=== PATIENT | female | born 1985 | race Caucasian/White ===

== ENCOUNTER 2019-04-05 16:25 | Emergency (ER) | payer MEDICAID ==
[~2019-04-05] VITALS: Ht 160 cm; Wt 53.5 kg
[2019-04-05 17:13] VITALS: BP_SYST 125
[2019-04-05] MEDS ORDERED: LIDOCAINE 2%, 20 ML MDV INJ ONE (17:15)
[2019-04-05] MEDS ORDERED: SODIUM BICARBONATE 8.4% VIAL 50 MEQ/50 ML VIAL INJ ONE (17:15)
[2019-04-05] MEDS ORDERED: IBUPROFEN 800 MG TABLET PO ONE (17:15)
--- NOTE | 2019-04-05 17:21 | NUR ---
Patient triaged and placed in waiting room. VSS and patient appears in no acute distress at this time. Accompanied by self, awaiting available bed, and MD notified of need for MSE.
--- NOTE | 2019-04-05 21:08 | NUR ---
Note sachin in EDM - 04/05/19 at 2112 by [email or web address] pPatient to [facility] 5 to be[facility]ice for evaluation. Side rails up. Report given to PALMIRA Roca.
--- NOTE | 2019-04-05 21:08 | NUR ---
Patient to ER bed 5 to gown for evaluation. Side rails up. Report given to PALMIRA Goodman.
--- NOTE | 2019-04-05 21:13 | NUR ---
33 y./o female presents to ED w/ c/o of pain abd swelling to right middle finger. Pt states pain is constant and severe. Redness noted. Pt states pain is increased with palpatation. No fever, no chills, no N/V, noted. Pt has been wearing a glove to protect the finger. Will continue to monitor.
--- NOTE | 2019-04-05 21:15 | NUR ---
Dr. Steinberg in at bedside examining Pt.
[2019-04-05] MEDS ORDERED: SODIUM BICARBONATE 8.4% VIAL 50 MEQ/50 ML VIAL ONE (21:19)
[2019-04-05] MEDS ORDERED: LIDOCAINE 2%, 20 ML MDV ONE (21:20)
[2019-04-05] MEDS ORDERED: IBUPROFEN 800 MG TABLET ONE (21:20)
[2019-04-05 21:50] VITALS: BP_SYST 126
--- NOTE | 2019-04-05 21:50 | NUR ---
Patient given written and verbal discharge instructions and verbalizes understanding. ER MD discussed with patient the results and treatment provided. Patient in stable condition. ID arm band removed. Patient educated on pain management and to follow up with PMD. Pain Scale 0/10. Opportunity for questions provided and answered. Medication side effect fact sheet provided.
== END 2019-04-05 21:50 | disposition home or self-care (01) ==
LOC: SED 16:25
DX: L03.011 Cellulitis of right finger (principal); R03.0 Elevated blood-pressure reading, without diagnosis of hypertension; F12.90 Cannabis use, unspecified, uncomplicated
CPT/HCPCS: 10060; 99283; J2001

== ENCOUNTER 2020-09-17 20:35 | Emergency (ER) | payer MEDICAID ==
[~2020-09-17] VITALS: Ht 160 cm; Wt 57.2 kg
[2020-09-17 21:25] VITALS: BP_SYST 118
--- NOTE | 2020-09-17 21:50 | NUR ---
Patient called x 3, no answer
--- NOTE | 2020-09-17 21:50 | NUR ---
Patient left without being seen. No further care provided. ER MD aware
== END 2020-09-17 21:50 | disposition left against medical advice (07) ==
LOC: SED 20:35
DX: R10.9 Unspecified abdominal pain (principal); Z53.21 Procedure and treatment not carried out due to patient leaving prior to being seen by health care provider

== ENCOUNTER 2020-11-14 17:49 | Emergency (ER) | payer MEDICAID ==
[~2020-11-14] VITALS: Ht 162.6 cm; Wt 57.6 kg
--- NOTE | 2020-11-14 17:50 | NUR ---
Pt triaged and placed back in police car, pt here for OK to book, no complaints at this time. Small laceration to right elbow, approx 3 days ago, no bleeding noted.
--- NOTE | 2020-11-14 17:55 | NUR ---
ER Dr. Elliott at bedside examining patient.
[2020-11-14] MEDS ORDERED: BACITRACIN 1 GM OINT TP ONE ×2 (18:00→18:01)
[2020-11-14 18:07] VITALS: BP_SYST 131
[2020-11-14 18:48] VITALS: BP_SYST 131
--- NOTE | 2020-11-14 18:49 | NUR ---
Patient given written and verbal discharge instructions and verbalizes understanding. ER MD discussed with patient the results and treatment provided. Patient in stable condition. ID arm band removed. No prescriptions given. Patient educated on pain management and to follow up with PMD. Pain Scale 0. Opportunity for questions provided and answered. Medication side effect fact sheet provided.
== END 2020-11-14 18:49 ==
LOC: SED 17:49
DX: Z02.89 Encounter for other administrative examinations (principal)
CPT/HCPCS: 99283

== ENCOUNTER 2022-02-25 11:49 | Inpatient (IN) | payer MEDICAID ==
[~2022-02-25] VITALS: Ht 157.5 cm; Wt 56.7 kg
[2022-02-25 11:50] VITALS: BP_SYST 136
[2022-02-25 13:35] LABS: BASOPHILS # (AUTO) 0.1 K/uL (0.0-0.2); BASOPHILS % (AUTO) 0.8 % (0.0-2.0); EOSINOPHILS # (AUTO) 0.1 K/uL (0.0-0.4); EOSINOPHILS % (AUTO) 0.7 % (0.0-4.0); HEMATOCRIT 39.6 % (36-48); HEMOGLOBIN 13.2 g/dL (12.0-16.0); LYMPHOCYTES # (AUTO) 0.3 K/uL (1.0-5.5); LYMPHOCYTES % (AUTO) 3.4 % (20.5-51.5); MEAN CORPUSCULAR HEMOGLOBIN 31 pg (27-31); MEAN CORPUSCULAR HGB CONC 34 % (32-36); MEAN CORPUSCULAR VOLUME 94 fL (79.0-98.0); MONOCYTES # (AUTO) 0.5 K/uL (0.0-1.0); MONOCYTES % (AUTO) 4.7 % (1.7-9.3); NEUTROPHILS # (AUTO) 8.6 K/uL (1.8-7.7); NEUTROPHILS % (AUTO) 90.4 % (40.0-70.0); PLATELET COUNT (AUTO) 250 K/uL (130-430); RED BLOOD CELL COUNT(AUTO) 4.23 MIL/uL (4.2-6.2); RED CELL DISTRIBUTION WIDTH 12.9 % (9.0-15.0); WHITE BLOOD COUNT (AUTO) 9.6 K/uL (4.8-10.8)
[2022-02-25 14:02] LABS: CALCIUM 8.8 mg/dL (8.4-11.0); CREATININE 0.79 mg/dL (0.55-1.30)
[2022-02-25 14:06] LABS: ALBUMIN 3.9 g/dL (3.4-4.8)
[2022-02-25] MEDS ORDERED: MORPHINE 4 MG INJ. 4 MG/ML VIAL IVP ONE (16:15)
[2022-02-25] MEDS ORDERED: NACL 0.9% 1,000 ML IV ONE (16:15)
[2022-02-25] MEDS ORDERED: ONDANSETRON HCL 4 MG/2 ML VIAL IVP ONE (16:15)
[2022-02-25] MEDS ORDERED: KETOROLAC TROMETHAMINE 30 MG VIAL IVP ONE (16:30)
[2022-02-25] MEDS ORDERED: D5/0.45 NS 1,000 ML IV ONE (17:15)
[2022-02-25] MEDS ORDERED: SEVOFLURANE 15 MIN GAS INH ONE (17:50)
[2022-02-25] MEDS ORDERED: CEFAZOLIN 2 GM IVPB PREMIX 50 ML IV ONE (17:50)
[2022-02-25] MEDS ORDERED: SUCCINYLCHOLINE CHLORIDE 20 MG/ML(QUELICIN) ONE (17:50)
[2022-02-25] MEDS ORDERED: NS IRRIG SOLN 1000 ML IR ONE (17:50)
[2022-02-25] MEDS ORDERED: LR 1,000 ML IV.SOLN IV ONE (17:50)
[2022-02-25] MEDS ORDERED: PROPOFOL 200MG/ 20ML VIAL (DIPRIVAN) IV ONE (17:50)
[2022-02-25] MEDS ORDERED: fentaNYL CITRATE/PF 100 MCG/2 ML AMP ONE (17:50)
[2022-02-25] MEDS ORDERED: MIDAZOLAM HCL 5 MG/ML VIAL (VERSED) IV ONE (17:50)
[2022-02-25] MEDS ORDERED: NS 1000 ML IV.SOLN IV ONE (17:50)
[2022-02-25] MEDS ORDERED: ROCURONIUM BROMIDE 10 MG/ML (ZEMURON) ONE (17:50)
[2022-02-25 23:25] VITALS: BP_SYST 126
[2022-02-25] MEDS: KETOROLAC TROMETHAMINE 30 MG VIAL IM SCH (23:38)
[2022-02-26] VITALS: BP_SYST 122
[2022-02-26] MEDS: KETOROLAC TROMETHAMINE 30 MG VIAL IM SCH ×3 (05:18→18:00)
[2022-02-26 07:01] LABS: BASOPHILS % (AUTO) 0.9 % (0.0-2.0); EOSINOPHILS # (AUTO) 0.2 K/uL (0.0-0.4); EOSINOPHILS % (AUTO) 5.2 % (0.0-4.0); HEMATOCRIT 36.2 % (36-48); HEMOGLOBIN 12.3 g/dL (12.0-16.0); LYMPHOCYTES # (AUTO) 0.5 K/uL (1.0-5.5); MEAN CORPUSCULAR HEMOGLOBIN 32 pg (27-31); MEAN CORPUSCULAR HGB CONC 34 % (32-36); MEAN CORPUSCULAR VOLUME 94 fL (79.0-98.0); MONOCYTES # (AUTO) 0.3 K/uL (0.0-1.0); MONOCYTES % (AUTO) 8.3 % (1.7-9.3); NEUTROPHILS # (AUTO) 2.7 K/uL (1.8-7.7); NEUTROPHILS % (AUTO) 72.6 % (40.0-70.0); PLATELET COUNT (AUTO) 200 K/uL (130-430); RED BLOOD CELL COUNT(AUTO) 3.86 MIL/uL (4.2-6.2); RED CELL DISTRIBUTION WIDTH 12.7 % (9.0-15.0); WHITE BLOOD COUNT (AUTO) 3.7 K/uL (4.8-10.8)
[2022-02-26 07:45] LABS: INR 0.9 (0.8-1.2); PROTHROMBIN TIME 9.3 SECS (9.5-12.5)
[2022-02-26 07:55] LABS: CALCIUM 8.1 mg/dL (8.4-11.0); CREATININE 0.53 mg/dL (0.55-1.30); THYROID STIMULATING HORMONE 0.35 uIu/mL (0.36-3.74); TOTAL BILIRUBIN 0.5 mg/dL (0.0-1.0)
[2022-02-26 09:45] VITALS: BP_SYST 103
[2022-02-26] MEDS ORDERED: ONDANSETRON HCL 4 MG/2 ML VIAL IVP PRN (16:00)
[2022-02-26] MEDS ORDERED: METOCLOPRAMIDE HCL 10 MG/2 ML VIAL IVP PRN (16:00)
[2022-02-26] MEDS ORDERED: fentaNYL CITRATE/PF 100 MCG/2 ML AMP IVP PRN ×2 (16:00)
[2022-02-26 16:49] VITALS: BP_SYST 103
[2022-02-26] MEDS ORDERED: ONDANSETRON HCL 4 MG/2 ML VIAL ONE (18:25)
[2022-02-26] MEDS: MORPHINE 4 MG INJ. 4 MG/ML VIAL IVP PRN (18:48)
[2022-02-26 18:55] VITALS: BP_SYST 128
[2022-02-26 20:00] VITALS: BP_SYST 132
[2022-02-27] MEDS: KETOROLAC TROMETHAMINE 30 MG VIAL IM SCH ×5 (00:12→17:36)
[2022-02-27 04:00] VITALS: BP_SYST 130
[2022-02-27 07:23] LABS: BASOPHILS % (AUTO) 0.7 % (0.0-2.0); EOSINOPHILS # (AUTO) 0.1 K/uL (0.0-0.4); EOSINOPHILS % (AUTO) 2.8 % (0.0-4.0); HEMATOCRIT 37.2 % (36-48); HEMOGLOBIN 12.4 g/dL (12.0-16.0); LYMPHOCYTES # (AUTO) 0.8 K/uL (1.0-5.5); MEAN CORPUSCULAR HEMOGLOBIN 31 pg (27-31); MEAN CORPUSCULAR HGB CONC 33 % (32-36); MEAN CORPUSCULAR VOLUME 94 fL (79.0-98.0); MONOCYTES # (AUTO) 0.4 K/uL (0.0-1.0); MONOCYTES % (AUTO) 11.3 % (1.7-9.3); NEUTROPHILS # (AUTO) 2.4 K/uL (1.8-7.7); NEUTROPHILS % (AUTO) 63.2 % (40.0-70.0); PLATELET COUNT (AUTO) 200 K/uL (130-430); RED BLOOD CELL COUNT(AUTO) 3.97 MIL/uL (4.2-6.2); WHITE BLOOD COUNT (AUTO) 3.8 K/uL (4.8-10.8)
[2022-02-27 08:00] LABS: ALBUMIN 2.8 g/dL (3.4-4.8); CALCIUM 8.2 mg/dL (8.4-11.0); CREATININE 0.48 mg/dL (0.55-1.30); TOTAL BILIRUBIN 0.3 mg/dL (0.0-1.0)
[2022-02-27 08:41] VITALS: BP_SYST 104
[2022-02-27 11:46] VITALS: BP_SYST 101
[2022-02-27 16:27] VITALS: BP_SYST 112
[2022-02-27 20:00] VITALS: BP_SYST 119
[2022-02-27] MEDS: MORPHINE 4 MG INJ. 4 MG/ML VIAL IVP PRN (22:54)
[2022-02-28 01:41] VITALS: BP_SYST 120
[2022-02-28] MEDS: KETOROLAC TROMETHAMINE 30 MG VIAL IVP SCH ×3 (05:43→20:40)
[2022-02-28 08:00] VITALS: BP_SYST 94
[2022-02-28 10:20] LABS: BASOPHILS % (AUTO) 0.7 % (0.0-2.0); EOSINOPHILS # (AUTO) 0.2 K/uL (0.0-0.4); EOSINOPHILS % (AUTO) 5.6 % (0.0-4.0); HEMATOCRIT 38.2 % (36-48); HEMOGLOBIN 12.6 g/dL (12.0-16.0); LYMPHOCYTES # (AUTO) 0.9 K/uL (1.0-5.5); LYMPHOCYTES % (AUTO) 22.4 % (20.5-51.5); MEAN CORPUSCULAR HEMOGLOBIN 31 pg (27-31); MEAN CORPUSCULAR HGB CONC 33 % (32-36); MEAN CORPUSCULAR VOLUME 94 fL (79.0-98.0); MONOCYTES # (AUTO) 0.5 K/uL (0.0-1.0); MONOCYTES % (AUTO) 13.3 % (1.7-9.3); NEUTROPHILS # (AUTO) 2.3 K/uL (1.8-7.7); PLATELET COUNT (AUTO) 207 K/uL (130-430); RED BLOOD CELL COUNT(AUTO) 4.06 MIL/uL (4.2-6.2)
[2022-02-28 10:33] LABS: ALBUMIN 2.8 g/dL (3.4-4.8); CALCIUM 8.7 mg/dL (8.4-11.0); CREATININE 0.5 mg/dL (0.55-1.30); TOTAL BILIRUBIN 0.3 mg/dL (0.0-1.0)
[2022-02-28 16:00] VITALS: BP_SYST 115
[2022-02-28 20:35] VITALS: BP_SYST 109
[2022-03-01 00:50] VITALS: BP_SYST 108
[2022-03-01] MEDS: KETOROLAC TROMETHAMINE 30 MG VIAL IVP SCH ×3 (00:54→11:26)
[2022-03-01 07:39] LABS: INR 0.8 (0.8-1.2); PROTHROMBIN TIME 8.9 SECS (9.5-12.5)
[2022-03-01 08:00] VITALS: BP_SYST 118
[2022-03-01] MEDS ORDERED: INDOMETHACIN 50 MG SUPP.RECT RC ONE (08:00)
[2022-03-01] MEDS ORDERED: ONDANSETRON HCL 4 MG/2 ML VIAL IVP ONE (08:15)
[2022-03-01] MEDS ORDERED: SEVOFLURANE 15 MIN GAS INH ONE (08:15)
[2022-03-01] MEDS ORDERED: METOCLOPRAMIDE HCL 10 MG/2 ML VIAL IVP ONE (08:15)
[2022-03-01] MEDS ORDERED: SUGAMMADEX SODIUM 200 MG/2 ML VIAL IV ONE (08:15)
[2022-03-01] MEDS ORDERED: SUCCINYLCHOLINE CHLORIDE 20 MG/ML(QUELICIN) IVP ONE ×2 (08:15)
[2022-03-01] MEDS ORDERED: LR 1,000 ML IV.SOLN IV ONE (08:15)
[2022-03-01] MEDS ORDERED: PROPOFOL 200MG/ 20ML VIAL (DIPRIVAN) IV ONE (08:15)
[2022-03-01] MEDS ORDERED: IOHEXOL 300 mgI/mL, 50 mL INFUS..BTL IV ONE (08:15)
[2022-03-01] MEDS ORDERED: ROCURONIUM BROMIDE 10 MG/ML (ZEMURON) IV ONE (08:15)
[2022-03-01] MEDS ORDERED: ePHEDrine sulfate 50 MG/ML VIAL IVP ONE (08:15)
[2022-03-01] MEDS ORDERED: SIMETHICONE 40 MG/0.6 ML ML ONE (08:32)
[2022-03-01] MEDS: MEPERIDINE 100 MG INJ. 100 MG/ML VIAL ONE (10:20)
[2022-03-01 10:38] VITALS: BP_SYST 135
== END 2022-03-01 16:15 | disposition left against medical advice (07) | DRG 263 ==
LOC: SED 11:49 → SMU 17:05
PROVIDERS: ADMIT Internal Medicine; ATTEND Internal Medicine
PROC: BF131ZZ Fluoroscopy of Gallbladder and Bile Ducts using Low Osmolar Contrast (ICD-10-PCS; 2022-02-26)
PROC: 0FC94ZZ Extirpation of Matter from Common Bile Duct, Percutaneous Endoscopic Approach (ICD-10-PCS; 2022-02-26)
PROC: 0FT44ZZ Resection of Gallbladder, Percutaneous Endoscopic Approach (ICD-10-PCS; principal; 2022-02-26 15:20)
PROC: 0F798ZZ Dilation of Common Bile Duct, Via Natural or Artificial Opening Endoscopic (ICD-10-PCS; 2022-03-01 08:00)
DX: K80.65 Calculus of gallbladder and bile duct with chronic cholecystitis with obstruction (principal); U07.1 COVID-19; K86.2 Cyst of pancreas; F10.10 Alcohol abuse, uncomplicated; F15.10 Other stimulant abuse, uncomplicated; K21.9 Gastro-esophageal reflux disease without esophagitis; Y90.9 Presence of alcohol in blood, level not specified; K86.9 Disease of pancreas, unspecified; K29.70 Gastritis, unspecified, without bleeding; Z59.00 Homelessness unspecified
CPT/HCPCS: 36415; 43235; 43262; 43264; 74330-TC; 76000; 76376; 76705; 80053; 80061; 80307; 82150; 83605; 83690; 84443; 84703; 85025; 85610-TC; 85730-TC; 86140; 87081; 88304; 96360; 99285; C1727; C1758; C1769; G0482; J0330; J0690; J1885; J2175; J2250; J2270; J2405; J2704; J2765; J3010; J3490; J7030; J7120; Q9967

== ENCOUNTER 2022-08-02 07:52 | Emergency (ER) | payer MEDICAID ==
[~2022-08-02] VITALS: Ht 157.5 cm; Wt 56.7 kg
[2022-08-02 08:00] VITALS: BP_SYST 137
[2022-08-02] MEDS ORDERED: DOXYCYCLINE HYCLATE 100 MG CAPSULE PO ONE (08:30)
[2022-08-02] MEDS ORDERED: cefTRIAXone 250 MG VIAL IM ONE (08:30)
[2022-08-02] MEDS ORDERED: ONDANSETRON 4 MG ODT TAB PO ONE (08:30)
[2022-08-02] MEDS ORDERED: MAG HYDROX/AL HYDROX/SIMETH 30 ML, DICYCLOMINE HCL 20 MG, LIDOCAINE VISCOUS 2% 15ML (PO... PO ONE ×3 (08:30)
[2022-08-02] MEDS ORDERED: FAMOTIDINE 20 MG TABLET PO ONE (08:30)
[2022-08-02 08:31] LABS: BASOPHILS % (AUTO) 0.7 % (0.0-2.0); EOSINOPHILS # (AUTO) 0.3 K/uL (0.0-0.4); EOSINOPHILS % (AUTO) 5.9 % (0.0-4.0); HEMATOCRIT 40.8 % (36-48); HEMOGLOBIN 13.4 g/dL (12.0-16.0); LYMPHOCYTES # (AUTO) 2.1 K/uL (1.0-5.5); LYMPHOCYTES % (AUTO) 35.7 % (20.5-51.5); MEAN CORPUSCULAR HEMOGLOBIN 30 pg (27-31); MEAN CORPUSCULAR HGB CONC 33 % (32-36); MEAN CORPUSCULAR VOLUME 91 fL (79.0-98.0); MONOCYTES # (AUTO) 0.7 K/uL (0.0-1.0); MONOCYTES % (AUTO) 12.5 % (1.7-9.3); NEUTROPHILS # (AUTO) 2.6 K/uL (1.8-7.7); NEUTROPHILS % (AUTO) 45.2 % (40.0-70.0); PLATELET COUNT (AUTO) 278 K/uL (130-430); RED BLOOD CELL COUNT(AUTO) 4.47 MIL/uL (4.2-6.2); WHITE BLOOD COUNT (AUTO) 5.8 K/uL (4.8-10.8)
[2022-08-02 08:55] LABS: ALANINE AMINOTRANSFERASE 36 U/L (12-78); ALBUMIN 3.8 g/dL (3.4-4.8); ANION GAP 10 (5-15); ASPARTATE AMINOTRANSFERASE 34 U/L (10-37); CALCIUM 8.5 mg/dL (8.4-11.0); CHLORIDE 101 mmol/L (98-107); CREATININE 0.94 mg/dL (0.55-1.30); GFR AFRICAN AMERICAN 85 mL/min (>90); GLUCOSE 123 mg/dL (70-99); LIPASE 77 U/L (73-393); TOTAL BILIRUBIN 0.5 mg/dL (0.0-1.0); UREA NITROGEN, BLOOD 20 mg/dL (8-21)
[2022-08-02 09:05] LABS: BILIRUBIN,URINE NEGATIVE (NEGATIVE); BLOOD, URINE NEGATIVE (NEGATIVE); CLARITY/URINE SL CLOUDY (CLEAR); COLOR,URINE YELLOW (YELLOW); GLUCOSE,URINE NEGATIVE (NEGATIVE); KETONES,URINE TRACE (NEGATIVE); LEUKOCYTE ESTERASE ,URINE 1+ (NEGATIVE); NITRITE, URINE NEGATIVE (NEGATIVE); PROTEIN URINE 2+ (NEGATIVE)
[2022-08-02 09:17] LABS: ACETAMINOPHEN < 1 ug/mL (1-30); ALCOHOL, BLOOD < 3 mg/dL (<10)
[2022-08-02 09:19] LABS: BACTERIA,URINE FEW /HPF (None Seen); MUCUS,URINE 1+ /LPF (None Seen); RBC,URINE 0-3 /HPF (0-3); WBC,URINE 20-50 /HPF (0-3)
[2022-08-02 09:24] LABS: BARBITURATE, URINE NEGATIVE (NEG <=200); BENZODIAZEPINE, URINE NEGATIVE (NEG <=150); CANNABINOID, URINE NEGATIVE (NEG <=50); COCAINE, URINE NEGATIVE (NEG <=150); METHAMPHETAMINES SCREEN,URINE POSITIVE (NEG <=500); OPIATE, URINE NEGATIVE (NEG <=100); PHENCYCLIDINE SCREEN,URINE NEGATIVE (NEG <=25); UR TRICYCLIC ANTIDEPRESSANTS NEGATIVE (NEG <=300); URINE AMPHETAMINE POSITIVE (NEG <=500); URINE METHADONE NEGATIVE (NEG <=200); URINE OXYCODONE SCREEN NEGATIVE (NEG <=100); URINE PROPOXYPHENE SCREEN NEGATIVE (NEG <=300)
[2022-08-02] MEDS ORDERED: CEPH-548 PO (09:28)
[2022-08-02] MEDS ORDERED: CHLO10CA7 PO (09:28)
[2022-08-02] MEDS ORDERED: FAMO-132 PO (09:28)
[2022-08-02] MEDS ORDERED: ONDA-8 TL (09:28)
[2022-08-02] MEDS ORDERED: CEPHALEXIN 125 MG/5 ML, 100 ML BTL PO ONE (09:30)
[2022-08-02] MEDS ORDERED: chlordiazePOXIDE HCL 10 MG CAPSULE PO ONE (09:30)
[2022-08-02] MEDS ORDERED: DOXY100C PO (09:31)
[2022-08-02 10:05] LABS: ACETONE, SERUM NEGATIVE (NEGATIVE)
[2022-08-02] MEDS ORDERED: cephALEXin 500 MG CAPSULE PO ONE (10:15)
[2022-08-02 10:25] VITALS: BP_SYST 112
== END 2022-08-02 10:28 | disposition home or self-care (01) ==
LOC: SED 07:52
DX: N39.0 Urinary tract infection, site not specified (principal); K29.70 Gastritis, unspecified, without bleeding; F10.20 Alcohol dependence, uncomplicated; F15.10 Other stimulant abuse, uncomplicated; E87.6 Hypokalemia; Z11.3 Encounter for screening for infections with a predominantly sexual mode of transmission; Z79.899 Other long term (current) drug therapy; Y90.6 Blood alcohol level of 120-199 mg/100 ml
CPT/HCPCS: 99284; 80307; 80053; 82009; 83690; 85025; 87086; 36415; 81025; 96372; 81000; G0482; Q0162; J2001; J0696; G0480; G0481